=== PATIENT | male | born 2000 | race Caucasian/White ===

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

== ENCOUNTER 2021-05-17 22:15 | Emergency (ER) | payer OTHER ==
[~2021-05-17 22:15] MED LIST changes: +IBU800 MG PO
[2021-05-18] MEDS ORDERED: IBUPROFEN800 MG PO (02:40)
[2021-05-18] MEDS ORDERED: CYCLOBENZAPRINE10 MG PO (02:40)
== END 2021-05-18 02:49 | disposition home or self-care (01) ==
LOC: ER1 22:15
DX: S09.90XA Unspecified injury of head, initial encounter (principal); S16.1XXA Strain of muscle, fascia and tendon at neck level, initial encounter; S39.012A Strain of muscle, fascia and tendon of lower back, initial encounter; S29.012A Strain of muscle and tendon of back wall of thorax, initial encounter; S50.01XA Contusion of right elbow, initial encounter; S40.012A Contusion of left shoulder, initial encounter; F17.290 Nicotine dependence, other tobacco product, uncomplicated; V89.2XXA Person injured in unspecified motor-vehicle accident, traffic, initial encounter; W22.10XA Striking against or struck by unspecified automobile airbag, initial encounter; Y92.410 Unspecified street and highway as the place of occurrence of the external cause
CPT/HCPCS: 70450; 72070; 72100; 72125; 73030; 73080; 99283

== ENCOUNTER 2021-11-24 21:19 | Emergency (ER) | payer OTHER | END 2021-11-24 22:10 | disposition home or self-care (01) | LOC: ER1 21:19 | DX: H93.12 Tinnitus, left ear (principal); F17.290 Nicotine dependence, other tobacco product, uncomplicated | CPT/HCPCS: 99282 ==

== ENCOUNTER 2021-12-01 18:18 | Observation (INO) | payer OTHER ==
[~2021-12-01] VITALS: Ht 185.4 cm; Wt 158.8 kg
[2021-12-01 19:00] LABS: HEMOGLOBIN 14.4 gm/dl (14.0-17.5); RED BLOOD COUNT 4.84 M/UL (4.20-5.50); WHITE BLOOD COUNT 4.9 K/UL (4.5-11.0)
[2021-12-01 19:21] LABS: BUN/CREATININE RATIO 11 (0-10)
[2021-12-02] MEDS ORDERED: PRILOSEC OTC20 MG PO (10:41)
--- NOTE | 2021-12-02 15:11 | NUR ---
GAVE THE OK FOR PATIENT TO COME OFF OF TELEMTRY FOR A SHOWER. TELEMTRY NOTIFIED BY NURSE.
[2021-12-03] MEDS ORDERED: IBUPROFEN600 MG PO (08:40)
== END 2021-12-03 10:35 | disposition home or self-care (01) ==
LOC: ER1 18:18 → CDU 21:44 → M/S 21:44
PROVIDERS: Emergency Medicine; ADMIT Internal Medicine
DX: R07.89 Other chest pain (principal); R77.8 Other specified abnormalities of plasma proteins; E66.9 Obesity, unspecified; F17.290 Nicotine dependence, other tobacco product, uncomplicated; E80.7 Disorder of bilirubin metabolism, unspecified; Z68.42 Body mass index [BMI] 45.0-49.9, adult; Z82.49 Family history of ischemic heart disease and other diseases of the circulatory system; Z20.822 Contact with and (suspected) exposure to COVID-19
CPT/HCPCS: ECHO; 0240U; 71045; 80053; 80061; 82550; 82553; 84484; 85025; 85379; 93005; 93306; 96372; 96374; 99285; G0378; J1650; J1885

== ENCOUNTER 2022-02-01 12:57 | Emergency (ER) | payer OTHER ==
[~2022-02-01 12:57] MED LIST changes: +IBUPROFEN600 MG PO; +PRILOSEC OTC20 MG PO
[2022-02-01 15:12] LABS: HEMOGLOBIN 15.3 gm/dl (14.0-17.5); RED BLOOD COUNT 5.18 M/UL (4.20-5.50); WHITE BLOOD COUNT 6.8 K/UL (4.5-11.0)
[2022-02-01 15:30] LABS: BUN/CREATININE RATIO 10 (0-10)
== END 2022-02-01 18:31 | disposition home or self-care (01) ==
LOC: ER1 12:57
PROVIDERS: Family Medicine
DX: R07.89 Other chest pain (principal); E66.01 Morbid (severe) obesity due to excess calories; F17.290 Nicotine dependence, other tobacco product, uncomplicated; Z87.19 Personal history of other diseases of the digestive system; Z79.899 Other long term (current) drug therapy
CPT/HCPCS: 71045; 80048; 82550; 82553; 84484; 85025; 93005; 99285